=== PATIENT | female | born 1980 ===

== ENCOUNTER 2017-12-22 10:58 | Emergency (ER) | payer OTHER, SELFPAY ==
[2017-12-22 11:29] VITALS: BP 103/71; PULSE 64; RESP 18; TEMP 98.2; O2SAT 100
[2017-12-22 11:40] VITALS: BMI 20.1
--- NOTE | 2017-12-22 12:02 | C.PDOC ---
History Of Present Illness Pt c/o b/l eye itching. Pt also c/o swelling/rash below b/l eyes. Time Seen by Provider: 12/22/17 11:45 Chief Complaint (Nursing): Eye Problem History Per: Patient Onset/Duration Of Symptoms: Days (1) Current Symptoms Are (Timing): Still Present Injury To Eye?: No Severity: Moderate Wears Contact Lens?: No Associated Symptoms: Swelling, Itching Additional History Per: Prior Records Past Medical History Reviewed: Historical Data, Nursing Documentation, Vital Signs Vital Signs: Last Vital Signs Temp 98.2 F 12/22/17 11:24 Pulse 64 12/22/17 11:24 Resp 18 12/22/17 11:24 BP 103/71 12/22/17 11:24 Pulse Ox 100 12/22/17 11:24 - Medical History PMH: Asthma, Hyperthyroidism Family History: States: Unknown Family Hx - Social History Hx Tobacco Use: No Hx Alcohol Use: No Hx Substance Use: No - Immunization History Hx Tetanus Toxoid Vaccination: No Hx Influenza Vaccination: No Hx Pneumococcal Vaccination: No Review Of Systems Except As Marked, All Systems Reviewed And Found Negative. Constitutional: Negative for: Fever Eyes: Negative for: Pain, Vision Change ENT: Negative for: Nose Congestion, Throat Pain Respiratory: Negative for: Shortness of Breath Gastrointestinal: Negative for: Vomiting Neurological: Negative for: Weakness, Seizures, Altered Mental Status, Headache Physical Exam - Physical Exam Appears: Non-toxic, No Acute Distress Skin: Warm, Dry Head: Atraumatic, Normacephalic, Other (mild irritation of skin below each eye b /l. Looks like due to rubbing/scratching.) Eye(s): bilateral: PERRL, EOMI Neck: Normal ROM, Supple Lymphatic: No Adenopathy Extremity: Normal ROM Neurological/Psych: Oriented x3, Normal Motor, Normal Sensation ED Course And Treatment O2 Sat by Pulse Oximetry: 100 Pulse Ox Interpretation: Normal Disposition Counseled Patient/Family Regarding: Diagnosis, Need For Followup, Rx Given - Disposition Referrals: [facility] [Outside] Disposition: HOME/ ROUTINE Disposition Time: 12:03 Condition: STABLE Additional Instructions: Follow up with your doctor or in the clinic. Return to the ER if you develop fever, headache, change in vision, worsening of symptoms or if you have any other concerns. Prescriptions: Ketotifen Fumarate 1 drop OP BID PRN #1 evonne PRN Reason: Itching / Pruritus Loratadine [Claritin] 10 mg PO DAILY PRN #30 tab PRN Reason: Allergy Symptoms Instructions: Conjunctivitis (Noninfectious Pinkeye) (DC) Print Language: MARSHALLESE - Clinical Impression Clinical Impression: Allergic conjunctivitis
== END 2017-12-22 12:13 | disposition home or self-care (01) ==
LOC: C.ER 10:58
DX: H10.10 Acute atopic conjunctivitis, unspecified eye (principal)

== ENCOUNTER 2018-08-14 12:28 | Emergency (ER) | payer OTHER ==
[2018-08-14 12:54] VITALS: BMI 20.2
[2018-08-14 12:57] VITALS: BP 110/75; PULSE 68; RESP 18; TEMP 98; O2SAT 98
--- NOTE | 2018-08-14 14:18 | C.PDOC ---
History Of Present Illness 38 y/o female comes in complaining of a 1 month history of intermittent headache with some pain behind the left ear. Patient also complains of left thigh pain. Denies nausea, vomiting, fever, chills, cough, or trauma. Chief Complaint (Nursing): Headache History Per: Patient History/Exam Limitations: no limitations Onset/Duration Of Symptoms: Days Current Symptoms Are (Timing): Still Present Past Medical History Reviewed: Historical Data, Nursing Documentation, Vital Signs Vital Signs: Last Vital Signs Temp 98 F 08/14/18 12:54 Pulse 68 08/14/18 12:54 Resp 18 08/14/18 12:54 BP 110/75 08/14/18 12:54 Pulse Ox 98 08/14/18 12:54 - Medical History PMH: Asthma, Hyperthyroidism Family History: States: No Known Family Hx - Social History Hx Tobacco Use: No Hx Alcohol Use: No Hx Substance Use: No - Immunization History Hx Tetanus Toxoid Vaccination: No Hx Influenza Vaccination: No Hx Pneumococcal Vaccination: No Review Of Systems Except As Marked, All Systems Reviewed And Found Negative. ENT: Positive for: Ear Pain Musculoskeletal: Positive for: Other (Thigh pain) Neurological: Positive for: Headache Physical Exam - Physical Exam Appears: Non-toxic, No Acute Distress Skin: Normal Color, Warm, Dry Head: Atraumatic, Normacephalic Eye(s): bilateral: Normal Inspection Ear(s): Left: Other (tenderness to palpation of posterior cervicle lymph node; TM clear; no mastoid tenderness) Oral Mucosa: Moist, No Trismus Throat: Normal, No Erythema, No Exudate Neck: Supple Chest: Symmetrical Cardiovascular: Rhythm Regular, No Murmur Respiratory: Normal Breath Sounds, No Rales, No Rhonchi, No Wheezing Gastrointestinal/Abdominal: Soft, No Tenderness Extremity: Tenderness (to left anterior thigh), No Pedal Edema Extremity: Bilateral: Normal Color And Temperature, Normal ROM Neurological/Psych: Oriented x3, Normal Speech ED Course And Treatment O2 Sat by Pulse Oximetry: 98 (RA) Pulse Ox Interpretation: Normal Medical Decision Making Medical Decision Making: Impression: Lymphadenitis Plan: --POC --Keflex 500 mg PO --Motrin 600 mg PO Disposition Counseled Patient/Family Regarding: Studies Performed, Diagnosis, Need For Fo llowup, Rx Given - Disposition Referrals: Neal,Elio J, MD [Non-Staff] - Disposition: HOME/ ROUTINE Disposition Time: 14:16 Condition: STABLE Additional Instructions: follow up with your doctor within 2 days call to make an appointment take medications as prescribed return to ER if symptoms worsens or progress Prescriptions: Cephalexin [Keflex] 500 mg PO QID #40 capsule Naproxen [Naprosyn] 500 mg PO BID PRN #16 tab PRN Reason: Pain, Moderate (4-7) Instructions: Muscle Strain (DC), Lymphadenitis Forms: Gen Discharge Inst Kiswahili, [facility] (Kiswahili), Work Excuse Print Language: ARMENIAN - Clinical Impression Clinical Impression: Lymphadenitis, Muscle ache - Scribe Statement The provider has reviewed the documentation as recorded by the Viridiana Ochoa Provider Attestation: All medical record entries made by the Viridiana were at my direction and personally dictated by me. I have reviewed the chart and agree that the record accurately reflects my personal performance of the history, physical exam, medical decision making, and the department course for this patient. I have also personally directed, reviewed, and agree with the discharge instructions and disposition.
== END 2018-08-14 14:21 | disposition home or self-care (01) ==
LOC: C.ER 12:28
DX: I88.9 Nonspecific lymphadenitis, unspecified (principal); M79.10 Myalgia, unspecified site

== ENCOUNTER 2018-08-30 09:59 | Outpatient (CLI) | payer OTHER | END 2018-08-30 10:00 | disposition home or self-care (01) | LOC: C.LAB 09:59 ==

== ENCOUNTER 2018-09-14 10:31 | Outpatient (CLI) | payer SELFPAY, OTHER | END 2018-09-14 10:32 | disposition home or self-care (01) | LOC: C.USIC 10:31 ==